=== PATIENT | male | born 1980 | race Caucasian/White ===

== ENCOUNTER 2016-10-19 14:02 | Emergency (ER) | payer OTHER ==
[2016-10-19 15:50] LABS: HEMOGLOBIN 11.4 gm/dl (14.0-17.5); RED BLOOD COUNT 3.89 M/UL (4.20-5.50); WHITE BLOOD COUNT 10.4 K/UL (4.5-11.0)
[2016-10-19 16:04] LABS: BUN/CREATININE RATIO 19 (0-10)
== END 2016-10-20 00:39 | disposition home or self-care (01) ==
LOC: ER1 14:02
PROVIDERS: Emergency Medicine
DX: L03.113 Cellulitis of right upper limb (principal); F19.10 Other psychoactive substance abuse, uncomplicated; F17.200 Nicotine dependence, unspecified, uncomplicated
CPT/HCPCS: 36415; 80048; 80076; 82550; 83605; 85025; 86140; 87040; 96365; 96366; 96367; 96375; 99284; J1200; J2407; J2930; J3370; J7070